=== PATIENT | female | born 1980 | race Hispanic/Latino ===

== ENCOUNTER 2019-04-14 15:14 | Observation (INO) | payer BC, MEDICAID ==
[~2019-04-14] VITALS: Ht 162.6 cm; Wt 88.0 kg
== END 2019-04-14 18:15 | disposition home or self-care (01) ==
LOC: LDH 15:14
PROVIDERS: ADMIT Obstetrics & Gynecology; ATTEND Obstetrics & Gynecology
DX: O36.8930 Maternal care for other specified fetal problems, third trimester, not applicable or unspecified (principal); Z3A.36 36 weeks gestation of pregnancy
CPT/HCPCS: 76819; G0378 ×3

== ENCOUNTER → 2022-12-30 | Outpatient (CLI) | payer OTHER ==
[~2022-12-30] MED LIST: ENOX40DI8 SQ; PREN-64 PO
== END | disposition home or self-care (01) ==
LOC: RAH 13:36
PROVIDERS: ATTEND Obstetrics & Gynecology
DX: Z12.31 Encounter for screening mammogram for malignant neoplasm of breast (principal)
CPT/HCPCS: 77067